=== PATIENT | male | born 1960 | race Caucasian/White ===

== ENCOUNTER 2019-05-12 07:52 | Day surgery (SDC) | payer OTHER ==
[~2019-05-12] VITALS: Ht 182.9 cm; Wt 89.9 kg
[~2019-05-12 07:52] MED LIST: EPIPEN 2-P0.3 MG/0.3 IM
--- NOTE | 2019-05-12 09:00 | NUR ---
05/12/19 0900 Rupali Digeo DELAYED ENTRY 0830 PT ASSISTED TO RESTROOM
== END 2019-05-12 09:32 | disposition home or self-care (01) ==
LOC: ORSCSDS 07:52
PROVIDERS: Surgery
PROC: 0DBL8ZX Excision of Transverse Colon, Via Natural or Artificial Opening Endoscopic, Diagnostic (ICD-10-PCS; principal; 2019-05-12 09:00)
DX: Z12.11 Encounter for screening for malignant neoplasm of colon (principal); D12.3 Benign neoplasm of transverse colon; K57.30 Diverticulosis of large intestine without perforation or abscess without bleeding; Z86.19 Personal history of other infectious and parasitic diseases; K74.60 Unspecified cirrhosis of liver; F41.9 Anxiety disorder, unspecified; I10 Essential (primary) hypertension; Z87.891 Personal history of nicotine dependence
CPT/HCPCS: 88305; J2704; J7120

== ENCOUNTER → 2022-11-08 | Outpatient (CLI) | payer OTHER | END | disposition home or self-care (01) | LOC: LAB 12:25 → LAB SHORT 12:25 | DX: R63.4 Abnormal weight loss (principal) | CPT/HCPCS: 84443 ==

== ENCOUNTER → 2022-12-13 | Outpatient (CLI) | payer OTHER ==
[2022-12-13 19:27] LABS: BASOPHILS ABSOLUTE AUTO 0.02 K/mm3 (0.00-0.23); BASOPHILS PERCENT AUTO 1 % (0-2); EOSINOPHILS ABSOLUTE AUTO 0.07 K/mm3 (0.00-0.68); EOSINOPHILS PERCENT AUTO 2 % (0-6); Hematocrit 41.8 % (37.0-53.0); Hemoglobin 14.3 g/dL (13.5-17.5); IMMATURE GRAN ABSOLUTE AUTO 0.03 K/mm3 (0.00-0.10); IMMATURE GRAN PERCENT AUTO 1 % (0-1); LYMPHOCYTES ABSOLUTE AUTO 1.02 K/mm3 (0.84-5.20); LYMPHOCYTES PERCENT AUTO 24 % (21-46); MONOCYTES ABSOLUTE AUTO 0.53 K/mm3 (0.16-1.47); MONOCYTES PERCENT AUTO 13 % (4-13); Mean Corpuscular HGB 27.8 pg (26.0-34.0); Mean Corpuscular HGB Conc 34.2 g/dL (31.5-36.5); Mean Corpuscular Volume 81 fL (80-100); Mean Platelet Volume 10.7 fL (9.1-12.4); NEUTROPHILS ABSOLUTE AUTO 2.51 K/mm3 (1.96-9.15); NEUTROPHILS PERCENT AUTO 60 % (41-73); Platelet Count 123 K/mm3 (150-400); RDW Coefficient Variation 13.5 % (11.7-14.2); RDW Standard Deviation 39.5 fL (35.1-46.3); Red Blood Cell Count 5.15 M/mm3 (4.30-5.90); White Blood Cell Count 4.18 K/mm3 (4.00-11.30)
[2022-12-13 19:30] LABS: Albumin, Blood 4.1 g/dL (3.4-5.0); Albumin/Globulin Ratio 1.1 (0.8-1.8); Bun/Creatinine Ratio 33.1 (12.0-20.0); Calcium, Blood 9.3 mg/dL (8.5-10.1); Creatinine, Blood 0.6 mg/dL (0.60-1.20); Globulin, Blood 3.6 g/dL (2.2-4.0); Potassium, Blood 4.1 mmol/L (3.5-5.5); Total Protein, Blood 7.7 g/dL (6.4-8.2)
== END | disposition home or self-care (01) ==
LOC: LAB 14:30 → LAB SHORT 14:30
PROVIDERS: Physician Assistant
DX: R63.4 Abnormal weight loss (principal)
CPT/HCPCS: 80053; 85025

== ENCOUNTER → 2023-01-09 | Outpatient (CLI) | payer OTHER | END | disposition home or self-care (01) | LOC: LAB SHORT 16:20 → LAB 16:20 | DX: Z51.81 Encounter for therapeutic drug level monitoring (principal); Z79.899 Other long term (current) drug therapy | CPT/HCPCS: 83036 ==